=== PATIENT | male | born 1930 | race Caucasian/White ===

== ENCOUNTER 2019-02-06 10:09 | Inpatient (IN) | payer OTHER ==
[~2019-02-06] VITALS: Ht 182.8 cm; Wt 83.9 kg
[2019-02-06] MEDS ORDERED: ARICEPT10 M1 PO (10:12)
[2019-02-06] MEDS ORDERED: ASPIRIN81 M1 PO (10:13)
[2019-02-06] MEDS ORDERED: ATORVASTATIN CA10 M1 PO (10:14)
[2019-02-06] MEDS ORDERED: IMDUR SA30 MG PO (10:16)
[2019-02-06] MEDS ORDERED: LISINOPRIL5 MG PO (10:16)
[2019-02-06] MEDS ORDERED: NAMENDA-5 PO (10:17)
[2019-02-06] MEDS ORDERED: LORADAMED10 MG PO (10:17)
[2019-02-06] MEDS ORDERED: DEPAKOTE SPRIN125 MG PO (10:18)
[2019-02-06] MEDS ORDERED: REMERON15 M2 PO (10:19)
[2019-02-06] MEDS ORDERED: RISPERIDONE1 MG PO (10:20)
[2019-02-06] MEDS ORDERED: VISTARIL50 MG PO (10:20)
[2019-02-06] MEDS ORDERED: LOPRESSOR25 MG PO (10:21)
[2019-02-06] MEDS ORDERED: BRILINTA90 M1 PO (10:23)
[2019-02-06 14:32] VITALS: BP 115/87
[2019-02-06 14:33] VITALS: BP 115/87
--- NOTE | 2019-02-06 14:40 | NUR ---
ALANNA FERNANDO a 88 year old M admitted via wheel chair from the [facility] as a voluntary BY POA admission. Arrived on unit at 1425 . ALLERGIES: PCN, XYLOCAINE . Vital signs are: 98.0-69-20 115/87. VERBAL CONSENT RECEIVED FROM THE POA FOR the following forms with stated understanding: Authorization For The Release of Medical Information, Clothing List, Consent to Voluntary Admission and Hospitalization, Consent and Release Forms/Receipt of Rights, Acknowledgement of Advance Directive Information, Behavioral Health Consent Form, and Informed Consent of Medications. Admitted under the services of Dr. JOANN ALLAN,[facility]. A search was conducted and hazardous articles were removed. Client was oriented to the unit. BEVERLY CONLEY
--- NOTE | 2019-02-06 14:43 | NUR ---
ATTEMPTED TO NOTIFY MEDICAL DR OF MEDICAL MANAGEMENT CONSULT NEEDED, NO ANSWER AT THIS TIME WILL CALL AGAIN.
--- NOTE | 2019-02-06 14:54 | NUR ---
SPOKE WITH DR. ZUNIGA AT [phone] RE: MEDICAL MANAGEMENT CONSULT NEEDED PER DR. DONOVAN CONSULT UNDER DR SANCHEZ
--- NOTE | 2019-02-06 14:59 | NUR ---
DR. SANCHEZ ON UNIT TO ASSESS PT.
--- NOTE | 2019-02-06 17:28 | NUR ---
SHIFT CHART CHECK COMPLETED.
[2019-02-06 19:47] VITALS: BP 129/60
--- NOTE | 2019-02-06 20:02 | NUR ---
PT ALERT, ORIENTED TO PERSON ONLY. IRRITABLE. ST/LT DEFICITS APPARENT. PT REORIENTED, REDIRECTED, PROVIDED WITH LOW STIMULATION AND CALM 1:1. PT UNABLE TO BE REORIENTED. RECEPTIVE TO REDIRECTION. CALMS WITH 1:1. WILL CONTINUE TO ATTEMPT REORIENTATION. WILL REDIRECT AND PROVIDE 1:1 APPROPRIATE. WILL PROVIDE MEDICATIONS PER ORDER. Q15 MIN MONITORING PER POLICY
[2019-02-06 23:21] LABS: BILIRUBIN NEGATIVE (NEGATIVE); BLOOD NEGATIVE (NEGATIVE); CLARITY CLEAR (CLEAR); COLOR YELLOW (YELLOW); GLUCOSE NEGATIVE (NEGATIVE); KETONE NEGATIVE (NEGATIVE); LEUKO ESTERASE NEGATIVE (NEGATIVE); NITRITE NEGATIVE (NEGATIVE); PH 6.5 (5.0-9.0)
[2019-02-06 23:32] LABS: WBC 0-2 wbc/hpf (0-5)
--- NOTE | 2019-02-07 00:59 | NUR ---
The patient has no complaints and is resting comfortably. RUSSELL MARTINEZ
--- NOTE | 2019-02-07 04:24 | NUR ---
PT AWAKE AND IRRITABLE. CONFUSED. YELLING OUT. VERBALLY AGGRESSIVE. PT IS YELLING OUT FOR "ZE" AND "SERG". STATING "FIRST THING I AM FILING FOR IS A DIVORCE. I'M GOING TO MISS A WHOLE DAY'S WORTH OF WORK BECAUSE I AM STUCK HERE". PT ALSO STATES "I HOPE YOU GET YOUR HEAD SMASHED IN SOMETHING FIERCE". PT UNRECEPTIVE TO REDIRECTION, CONTINUES TO YELL OUT AT THIS TIME. PT LEFT IN LOW STIMULATION AREA TO CALM. ENCOURAGED TO REST.
--- NOTE | 2019-02-07 05:05 | NUR ---
pts aggression increasing, states "if i could reach you i would bust you in the mouth". continuing to yell out at staff and peers. redirection, low stimulation, and snack ineffective. ativan 1mg po given per prn order for unredirectable agitation.
--- NOTE | 2019-02-07 05:48 | NUR ---
PT SLEPT BROKEN 4 HOURS, UP AT 0330.
[2019-02-07 07:01] LABS: BASO % 0.3 % (0.0-1.0); EOS # 0.2 10*3/uL (0.0-0.4); EOS % 5.4 % (1.0-4.0); HEMATOCRIT 36.5 % (42.0-52.0); HEMOGLOBIN 11.3 g/dl (14.0-18.0); LYMPH % 26.6 % (27.0-41.0); MEAN CELL VOLUME 90.3 fl (80.0-94.0); MEAN PLATELET VOLUME 11.8 fl (9.6-12.3); MONO # 0.4 10*3/uL (0.1-1.0); MONO % 10.6 % (3.0-9.0); NEUT # 2.1 10*3/uL (2.3-7.9); NEUT % 56.8 % (47.0-73.0); PLATELET COUNT AUTOMATED 99 10*3/uL (130-400); RED BLOOD COUNT 4.04 10*6/uL (4.50-5.90); RED CELL DISTRI WIDTH 16.4 % (0-14.5); WHITE BLOOD COUNT 3.7 10*3/uL (4.8-10.8)
[2019-02-07 07:24] LABS: ALBUMIN 3.2 gm/dl (3.1-4.5); BUN 16 mg/dl (7-24); CHLORIDE 110 mmol/L (98-107); CHOLESTEROL 124 mg/dL (<200); CREATININE 1.05 mg/dL (0.70-1.30); POTASSIUM 3.9 mmol/L (3.5-5.1); SGOT/AST 28 IU/L (3-35); SGPT/ALT 26 U/L (12-78); SODIUM 143 mmol/L (136-145); TRIGLYCERIDES 63 mg/dl (<150); VLDL CHOLESTEROL 13 mg/dL (6-40)
[2019-02-07 07:32] VITALS: BP 120/63
[2019-02-07 07:34] LABS: ALKALINE PHOSPHATASE 78 U/L (45-117); HDL CHOLESTEROL 44 mg/dl (40-60); LDL CHOLESTEROL 67 mg/dL (9-159); TOTAL PROTEIN 6.4 gm/dL (6.4-8.2)
[2019-02-07 08:14] LABS: VITAMIN D, 25-HYDROXY 22.8 ng/mL (30-100)
--- NOTE | 2019-02-07 08:24 | NUR ---
PHYSICAL THERAPY Screen received as well as orders for PT will follow, thank you Shyanne Serna PT
--- NOTE | 2019-02-07 09:26 | NUR ---
P-CONFUSION I-REDIRECTION WITH 1:1 THERAPEUTIC INTERVENTIONS AND PRESENT REALITY. EDUCATE AND ENCOURAGE MEDICATION COMPLIANCE R-PATIENT MEDICATION COMPLIANT. PATIENT ABLE TO MAKE NEEDS KNOWN AT TIMES DURING THE SHIFT. PATIENT WITH INAPPROPRIATE CONVERSATION WHEN INTERACING WITH NURSING STAFF AT TIMES. PATIENT PROVIDED NOURISHMENT AND FLUIDS. P-CONTINUE TO ENCOURAGE MEDICATION COMPLIANCE, CONTINUE TO PRESENT REALITY, ENCOURAGE GROUP THERAPY WHILE AWAKE
--- NOTE | 2019-02-07 09:56 | NUR ---
DR SANCHEZ ON UNIT TO SEE PATIENT
--- NOTE | 2019-02-07 10:16 | NUR ---
Treatment team meeting with Dr Bryan, RN, and PARAMJIT Pt is new from [facility] with plan to return there late next week.
--- NOTE | 2019-02-07 10:20 | NUR ---
REACHED OUT TO [facility] IN RE: TO HAVING RECENT LABS FAXED OVER. PER ROSIE SHE WILL FAC THEM SHORTLY.
--- NOTE | 2019-02-07 11:20 | NUR ---
DR BALDWIN UPDATED AND AWARE THAT LAB RESULTS NEED REVIEWED FOR PANCYTOPENIA PER DR DAVID REQUEST
--- NOTE | 2019-02-07 11:28 | NUR ---
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
--- NOTE | 2019-02-07 11:45 | NUR ---
AM GROUP PT WAS PRESENT FOR MORNING GROUP THERAPY SITTING RECLINED IN A ANDREA CHAIR WITH THE TRAY ON. PT WAS BECOMING AGITATED AT THE TRAY AND WAS DISTRACTABLE FOR A SHORT TIME. PT BEGAN TRYING TO SLIDE UNDER THE TRAY AND HELP WAS CALLED FOR. PT WAS TOILETED AND NOT RETURNED TO THE DAYROOM.
--- NOTE | 2019-02-07 11:55 | NUR ---
PATIENT AMBULATING ON UNIT WITH ASSIST X 2. PATIENT WITH ATTEMPTS TO PUT SELF ON FLOOR AND ASSISTED TO SIT DOWN. PATIENT ATTEMPTING TO STRIKE OUT AT NURSING STAFF. PATIENT RECEIVED ATIVAN 1MG IM IN LEFT DELTOID. MEDICATION WITH EFFECTIVE RESULTS AT THIS TIME
--- NOTE | 2019-02-07 12:05 | NUR ---
Left a voicemail message for pt's son Burton requesting a return call to obtain additional patient information and to offer a family meeting. Await return call.
--- NOTE | 2019-02-07 13:40 | NUR ---
ROSEANN MELCHOR FROM [facility] IP IS APPROVED FOR 3 DAYS, FROM 02/06-02/08. REF NUMBER [id number]
--- NOTE | 2019-02-07 15:14 | NUR ---
Occupational therapy orders received and nursing screen received. Will follow up with patient. Thank you. Denice Cai, OTR/L
--- NOTE | 2019-02-07 15:54 | NUR ---
PM GROUP/WATERCOLORS PT DID NOT ATTEND AFTERNOON GROUP THERAPY. PT WAS IN BED RESTING.
--- NOTE | 2019-02-07 17:13 | NUR ---
Shift chart check completed.
[2019-02-07 19:38] VITALS: BP 104/66
--- NOTE | 2019-02-07 21:44 | NUR ---
PT CONFUSED. ST/LT DEFICITS APPARENT. PT LOOKING FOR FAMILY MEMBERS, TOOLS, MAINTENANCE. PT REORIENTED, REDIRECTED, PROVIDED WITH LOW STIMULATION AND CALM 1:1. PT UNABLE TO BE REORIENTED D/T POOR COGNITION. RECEPTIVE TO REDIRECTION. CALMS WITH MUCH 1:1 AND LOW STIMULATION. WILL CONTINUE TO ATTEMPT REORIENTATION. WILL REDIRECT AND PROVIDE 1:1 APPROPRIATE. WILL PROVIDE MEDICATIONS PER ORDER. Q15 MIN MONITORING PER POLICY
--- NOTE | 2019-02-08 04:12 | NUR ---
The patient has no complaints and is resting comfortably. RUSSELL MARTINEZ
--- NOTE | 2019-02-08 08:15 | NUR ---
Treatment Plan meeting was held this morning with Dr. Bryan, RN, AT, VEGETABLE PACKER-S and Security Incident Response Specialist. Plan for discharge next week. Pt. will return to [facility].
[2019-02-08 08:39] VITALS: BP 130/68
--- NOTE | 2019-02-08 10:00 | NUR ---
CALL PLACED TO [facility] TO RETRIEVE RECORDS FROM HEMATOLOGY. [facility] STATE THEY DO NOT HAVE THESE RECORDS AND REFERRED STAFF TO CHECK WITH PT'S PREVIOUS LONGTERM, WOODS MANAGER LEFT MESSAGE FOR D.O.N. AT THIS FACILITY IN ATTEMPT TO RETRIEVE HEMATOLOGY RECORDS.
--- NOTE | 2019-02-08 10:30 | NUR ---
Occupational therapy orders received and OT evaluation completed in full on floor three. Patient precautions include fall risk, bed/chair alarm, supervision, decreased command follow, confusion, and lethargy. Per OT eval, OT recommends a SNF. Patient would benefit from continued OT treatment to maximize safety and independence with ADLs, mobility, and transfers. Thank you. Denice Cai, OTR/L
--- NOTE | 2019-02-08 10:45 | NUR ---
PHYSICAL THERAPY Be completed moderate level of complexity 20715 full report to follow recomend f/u therapy at facility upon return pending progress. PT to work on tranfers,amb/strengthening, balance/safety. Shyanne Serna PT
--- NOTE | 2019-02-08 11:43 | NUR ---
AM GROUP PT DID NOT ATTEND MORNING GROUP THERAPY. PT WAS IN BED RESTING.
--- NOTE | 2019-02-08 15:36 | NUR ---
PM GROUP PT WAS PRESENT FOR AFTERNOON GROUP THERAPY SLEEPING RECLINED IN A ANDREA CHAIR. PT DID NOT WAKE DURING GROUP BUT WAS NOTED TO BE SNORING LOUDLY.
--- NOTE | 2019-02-08 16:18 | NUR ---
AFTER CONTINUED REVIEW WITH SUSANA CURRIE APPROVED FOR 3 ADDITIONAL DAYS. NEXT REVIEW DATE 02/12
--- NOTE | 2019-02-08 18:40 | NUR ---
NO ADVERSE MOODS OR BEHAVIORS THIS SHIFT. PT NAPPING INTERMITTENTLY T/O SHIFT. EASILY AROUSABLE VIA VERBAL/TACTILE STIMULI. PT IS ALERT AND ORIENTED TO SELF ONLY. CONFUSED IN ALL OTHER AREAS. ST/LT MEMORY GAPS NOTED. MOOD APPEARS STABLE WITH FLAT AFFECT. SPEECH IS SOFT, COHERENT, ABLE TO ANSWER SIMPLE QUESTIONS AND MAKE NEEDS KNOWN. PT DENIES SI/HI, INTENT OR PLAN. PT DENIES HALLUCINATIONS, NO RESPONSE TO INTERNAL STIMULI NOTED. NO PARANOIA OR DELUSIONS NOTED. MED COMPLIANT THIS DATE WITHOUT DIFFICULTY. NO AGGRESSIVE BEHAVIORS DISPLAYED THIS SHIFT. PLAN TO CONTINUE CURRENT TREATMENT, CONTINUE TO MONITOR MOOD AND BEHAVIORS, PROVIDE APPROPRIATE REORIENTATION, REDIRECTION AND 1:1 NEEDED. CONTINUE TO ENCOURAGE MEDICATION COMPLIANCE WELL GROUP ATTENDANCE AND PARTICIPATION.
[2019-02-08 19:46] VITALS: BP 126/72
--- NOTE | 2019-02-08 22:28 | NUR ---
P-CONFUSION I-REDIRECTION WITH 1:1 THERAPEUTIC INTERVENTIONS AND PRESENT REALITY. EDUCATE AND ENCOURAGE MEDICATION COMPLIANCE R-PATIENT MEDICATION COMPLIANT. PATIENT ABLE TO MAKE NEEDS KNOWN AT TIMES DURING THE SHIFT. PATIENT WITH INAPPROPRIATE CONVERSATION WHEN INTERACTING WITH NURSING STAFF AT TIMES. PATIENT PROVIDED NOURISHMENT AND FLUIDS. P-CONTINUE TO ENCOURAGE MEDICATION COMPLIANCE, CONTINUE TO PRESENT REALITY, ENCOURAGE GROUP THERAPY WHILE AWAKE
--- NOTE | 2019-02-09 05:49 | NUR ---
PATIENT SLEPT 5 HOURS INTERRUPTED SLEEP THROUGHOUT SHIFT. Q 15 MINUTE CHECKS MAINTAINED. 24 HR chart check completed.
[2019-02-09 06:27] LABS: BASO % 0.2 % (0.0-1.0); EOS # 0.2 10*3/uL (0.0-0.4); EOS % 4.6 % (1.0-4.0); HEMATOCRIT 35.3 % (42.0-52.0); HEMOGLOBIN 11.1 g/dl (14.0-18.0); LYMPH # 1.2 10*3/uL (1.3-4.4); LYMPH % 27.1 % (27.0-41.0); MEAN CELL VOLUME 91.2 fl (80.0-94.0); MEAN CORPUSCULAR HGB 28.7 pg (27.0-31.0); MEAN CORPUSCULAR HGB CONC 31.4 g/dl (33.0-37.0); MEAN PLATELET VOLUME 11.7 fl (9.6-12.3); MONO # 0.5 10*3/uL (0.1-1.0); MONO % 10.7 % (3.0-9.0); NEUT # 2.5 10*3/uL (2.3-7.9); NEUT % 57.2 % (47.0-73.0); PLATELET COUNT AUTOMATED 89 10*3/uL (130-400); RED BLOOD COUNT 3.87 10*6/uL (4.50-5.90); RED CELL DISTRI WIDTH 16.4 % (0-14.5); WHITE BLOOD COUNT 4.3 10*3/uL (4.8-10.8)
[2019-02-09 07:54] VITALS: BP 132/70
--- NOTE | 2019-02-09 10:00 | NUR ---
DR. SANCHEZ ON UNIT TO ASSESS PATIENT.
--- NOTE | 2019-02-09 12:02 | NUR ---
AM GROUP/EXERCISE/MUSIC/BINGO PT IN ATTENDANCE BUT DUE TO LEVELS OF COGNTION PT UNABLE TO FOCUS ON ACTIVITY AT THIS TIME. PT DID NOT BECOME ASSAULTIVE OR AGGRESSIVE AT THIS TIME. PT WILL OCNITNUE TO ATTEND GROUP AND PARTICIPATE TO BEST OF PT ABILITY.
--- NOTE | 2019-02-09 13:33 | NUR ---
P: INCREASED CONFUSION, ARGUEMENTATIVE, IRRITABLE, INCREASED ANXIETY, RAISING VOICE AT STAFF AND BECOMING VERBALLY AGGRESSIVE TOWARDS NURSE. PATIENT INFORMED NURSE THAT THE CAMERAS IN THE DINING ROOM ARE "SHOWERS; HE IS A BAR/RESTAURANT BUILDING." I: ONE ON ONE FOR EMOTIONAL SUPPORT, CHANGE OF ENVIRONMENT WITH LOW STIMULI, OFFERED FOOD AND DRINK, ASSISTED TO BATHROOM FOR TOILETING NEEDS. REDIRECTION AND ORIENTATION PROVIDED. R: INEFFECTIVE. PRN ATIVAN 1MG PO GIVEN. CONTINUE TO PROVIDE ONE ON ONE, REDIRECTION/ORIENTATION WHILE SITTING WITH NURSE IN HALLWAY. PATIENT IS ALERT TO PERSON WITH CONFUSION. PATIENT BELIEVES [facility], REBECCA IS PRESIDENT AND THE DATE IS APR 15, 1960. LONG/SHORT TERM MEMORY DEFICITS NOTED. MOOD IS ANGRY/IRRITABLE, HOPELESS AND HELPLESS. RESPONDING TO INTERNAL STIMULI OBSERVED WITH VISUAL HALLUCINATIONS. NO VOICED STATEMENT OF HI/SI OR PAIN. 1-2 PERSON ASSIST WITH ACTIVITIES OF DAILY LIVING, INCONTINENT OF BLADDER, CONTINENT OF BOWEL. SET UP FOR MEALS, INTAKES ARE GOOD WITH ADQUATE FLUIDS. ASSISTANCE PROVIDED WITH AMBULATION DUE TO UNSTEADY GAIT. MEDICATION COMPIANT. Q 15 MINUTE SAFETY CHECKS MAINTAINED. P: CONTINUE TO MONITOR FOR AGGRESSION, PROVIDE ONE ON ONE, REDIRECTION/ORIENTATION NEEDED.
[2019-02-09 19:49] VITALS: BP 139/80
--- NOTE | 2019-02-09 21:32 | NUR ---
PT CONFUSED. ST/LT DEFICITS APPARENT. PT ASKING FOR "HEFTY GIRLS" TO HELP GET HIM OUT OF THIS PLACE. PT STATING "AT LEAST I DIDN'T CALL YOU CONRADO TORRES". PT IS LAUGHING, JOKING WITH STAFF, SINGING SONGS. PT REORIENTED AND REDIRECTED. PT UNABLE TO BE REORIENTED D/T POOR COGNITION. RECEPTIVE TO REDIRECTION, AND APPEARS TO ENJOY 1:1 INTERACTIONS. WILL CONTINUE TO ATTEMPT REORIENTATION. WILL REDIRECT AND PROVIDE 1:1 APPROPRIATE. WILL PROVIDE MEDICATIONS PER ORDER. Q15 MIN MONITORING PER POLICY
--- NOTE | 2019-02-10 06:32 | NUR ---
PT SLEPT 7 HOURS LAST HS.
[2019-02-10 07:26] VITALS: BP 135/85
--- NOTE | 2019-02-10 11:57 | NUR ---
AM GROUP/EXERCISE/MUSIC/GAMES PT IN ATTENDANCE BUT RESTING AT THIS TIME. PT WILL CONTINUE TO ATTEND FUTURE GROUP SESSIONS AND BE ENCOURAGED TO PARTICIPATE TO BEST OF PT ABILITY.
--- NOTE | 2019-02-10 14:27 | NUR ---
PATIENT IS ALERT TO PERSON WITH CONFUSION. LONG/SHORT TERM MEMORY DEFICITS. NO RESPONSE TO INTERNAL STIMULI OBSERVED. NO VOICED STATEMENT OF HI/SI OR PAIN. PATIENT SLEEPING ON AND OFF THROUGHOUT THE DAY. NO AGGRESSION NOTED. MEDICATION COMPLAINT. Q 15 MINUTE STAFETY CHECKS MAINTAINED. 1-2 PERSON ASSIST WITH ACTIVITIES OF DAILY LIVING, INCONTINENT OF BLADDER, CONTINENT OF BOWEL. AMBULATES WITH ASSIST. SET UP FOR MEALS, INTAKES ARE GOOD WITH ADEQUATE FLUIDS. UP IN ANDREA CHAIR FOR COMFORT. IN DINING ROOM DURING MORNING ACTIVITIES BUT DID NOT PARTICIPATE IN GROUP SESSION. CONTINUE TO MONITOR FOR AGGRESSSION, PROVIDE ONE ON ONE AND REDIRECTION NEEDED.
--- NOTE | 2019-02-10 15:39 | NUR ---
Shift chart check completed.
[2019-02-10 19:56] VITALS: BP 132/52
--- NOTE | 2019-02-10 21:35 | NUR ---
PT CONFUSED. ST/LT DEFICITS APPARENT. PT REORIENTED AND REDIRECTED. PT UNABLE TO BE REORIENTED D/T POOR COGNITION. RECEPTIVE TO REDIRECTION, AND APPEARS TO ENJOY 1:1 INTERACTIONS. PT IS CALM, COOPERATIVE WITH CARE. WILL CONTINUE TO ATTEMPT REORIENTATION. WILL REDIRECT AND PROVIDE 1:1 APPROPRIATE. WILL PROVIDE MEDICATIONS PER ORDER. Q15 MIN MONITORING PER POLICY
--- NOTE | 2019-02-11 05:48 | NUR ---
PT SLEPT 9 HOURS
--- NOTE | 2019-02-11 07:25 | NUR ---
PHYSICAL THERAPY Patient was in supine in bed this am when approached for therapy and was unable to arouse with both verbal / tactile stimuli. OT inventory control assistant was present this morning as patient remained in bed sleeping with bed alarm activated and bed side rails raised for safety. Will continue per POC as able. Waqar Sullivan, FIELD SALES SPECIALIST
[2019-02-11 07:42] VITALS: BP 138/70
--- NOTE | 2019-02-11 07:49 | NUR ---
Approached pt this am for OT but patient difficult to arouse despite verbal & tactile cues. U staff said "Lex has not been feeling well during evening and did not sleep well". Will attempt OT another time or date. Continue with OT POC. Jannet BRUNO/Davion
--- NOTE | 2019-02-11 08:15 | NUR ---
Treatment Plan meeting was held with BILL Srivastava RN, AT, RAIMUNDO-S and Rare/Endangered Species Specialist in attendance. Plan for discharge at the end of the week or beginning of next week. Pt. to return to [facility].
--- NOTE | 2019-02-11 09:46 | NUR ---
DR. SANCHEZ ON UNIT TO ASSESS PATIENT.
--- NOTE | 2019-02-11 11:20 | NUR ---
Spoke with Sandra at [facility]. Advised of plans to discharge at the end of the week. Clinical Updates faxed to Facility [phone].
--- NOTE | 2019-02-11 11:36 | NUR ---
AM GROUP/EXERCISE PT WAS PRESENT FOR MORNING GROUP THERAPY RECLINED IN A ANDREA CHAIR SLEEPING. PT DID NOT WAKE DURING GROUP.
--- NOTE | 2019-02-11 13:40 | NUR ---
P: SEXUALLY INAPPROPRIATE DURING HANDS ON CARE, ATTEMPTING TO GRAB FEMALE MENTAL HEALTH WORKER'S BREAST/HIP AREA. WITHDRAWN TO SELF, NOT INTERACTING IN WITH STAFF OR WITH OTHER PATIENTS IN GROUP SESSION. I: ONE ON ONE, REDIRECTION AND MALE MENTAL HEALTH WORKER ASSISTED WITH MORNING CARE, ENCOURAGE PATIENT TO ATTEND GROUP SESSION AND SOCIALZE WITH OTHER PATIENTS. R: EFFECTIVE. PATIENT IS ALERT TO SELF WITH CONFUSION. LONG/SHORT TERM MEMORY DEFICTS. MOOD IS STABLE; HOPELESS/HELPLESS. NO RESPONSE TO INTERNAL STIMULI, NO VOICED STATEMENTS OF HI/SI OR PAIN. MEDICATION COMPLAINT. Q 15 MINUTE SAFETY CHECKS MAINTAINED. 2 PERSON ASSIST WITH ACTIVITIES OF DAILY LIVING, INCONTINENT OF BADDER, CONTINENT OF BOWEL. AMBULATORY WITH ASSIST DUE TO UNSTEADY GAITN AND POOR SAFETY AWARENESS. NO AGGRESSION OR EXIT SEEKING OBSERVED. P: CONTINUE TO MONITOR FOR AGGRESSION, EXIT SEEKING/WONDERING ON UNIT. PROVIDE ONE ON ONE, REDIRETION/ORIENTATION NEEDED.
--- NOTE | 2019-02-11 15:31 | NUR ---
Shift chart check completed.
--- NOTE | 2019-02-11 15:35 | NUR ---
PM GROUP/MOVIE AND MANICURES PT WAS PRESENT FOR AFTERNOON GROUP THERAPY RECLINED IN A ANDREA CHAIR WATCHING THE MOVIE. PT WAS QUIET AND CONTENT. PT EXHBITED NO AGITATION OR AGGRESSION WHILE IN GROUP
[2019-02-11 19:46] VITALS: BP 135/72
--- NOTE | 2019-02-11 21:24 | NUR ---
P-CONFUSION I-REDIRECTION WITH 1:1 THERAPEUTIC INTERVENTIONS AND PRESENT REALITY. EDUCATE AND ENCOURAGE MEDICATION COMPLIANCE R-PATIENT MEDICATION COMPLIANT. PATIENT ABLE TO MAKE NEEDS KNOWN AT TIMES DURING THE SHIFT. PATIENT NONSENSICAL AT TIMES WITH CONVERSATION WHEN INTERACTING. DIVERSIONAL ACTIVITIES PROVIDED FOR PATIENT TO HELP DECREASE STIMULI.PATIENT PROVIDED NOURISHMENT AND FLUIDS. P-CONTINUE TO ENCOURAGE MEDICATION COMPLIANCE, CONTINUE TO PRESENT REALITY, ENCOURAGE GROUP THERAPY WHILE AWAKE
--- NOTE | 2019-02-12 05:46 | NUR ---
PATIENT SLEPT 7 HOURS OF INTERRRUPTED SLEEP THROUGHOUT THE SHIFT. Q 15 MINUTE CHECKS MAINTAINED. 24 HR chart check completed.
--- NOTE | 2019-02-12 07:30 | NUR ---
PHYSICAL THERAPY Patient seen this am for therapy visit and was sitting up in activity room Estelita chair upon therapist arrival. Patient identified by name / and needed a few minutes of conversation to fully awaken. Patient performed several sit to stand transfers at rail in hallway, MIN A, tolerating 90 seconds static stand first attempt with NBOS. Patient able to follow simple commands and needed v/c to focus on task. Patient also ambulated DISPLAY CARVER/MIN, including single handrail support, 10'x 1, demonstrating slow, unsteady ladan wiht decreased stride. Patient returned to Estelita chair with lap tray / body alarm and remained in activity room awaiting breakfast under [facility] staff Supervision. OT paraprofessional education assistant was present for observation only during MACHINE ASSISTANT visit this morning. Will continue per POC as tolerated, total treatment time 14 minutes. Waqar Sullivan, MACHINE ASSISTANT
[2019-02-12 07:41] VITALS: BP 110/61
--- NOTE | 2019-02-12 08:15 | NUR ---
Treatment Plan meeting was held with Carola KHAN, RN, AT, TECHNICAL PROJECT LEAD-S and Time Clock Inspector, Plan for discharge at the end of the week. Pt. will return to [facility] at discharge.
--- NOTE | 2019-02-12 08:15 | NUR ---
Treatment Plan meeting was held with Dr. Bryan, RN, AT, ENAMEL PULVERIZER-S and Garment Mender in attendance. Plan for discharge at the end of the week. Pt. will return to [facility].
--- NOTE | 2019-02-12 09:00 | NUR ---
PER INSURANCE CASE NEEDS A PEER REVIEW. PROVIDED WITH DR JOANN NYE.
--- NOTE | 2019-02-12 09:47 | NUR ---
PT C/O DIZZINESS AND HEADACHE. PT PROVIDED WITH 240CC OF WATER, MANUAL BP 100/50. RADIAL HR 82. PT RECLINED IN ANDREA CHAIR, FEET ELEVATED. PT GIVEN TYLENOL 650MG PO PER PRN ORDER FOR DISCOMFORT.
--- NOTE | 2019-02-12 11:36 | NUR ---
AM GROUP/WATERCOLORS PT WAS PRESENT FOR MORNING GROUP THERAPY BUT IS UNABLE TO PARTICIPATE DUE TO COGNITIVE IMPAIRMENT. PT KEPT TRYING TO GET UP AND "GO TAKE CARE OF THAT BILL" PT WAS REDIRECTABLE FOR SHORT PERIODS.
--- NOTE | 2019-02-12 13:37 | NUR ---
PHYSICAL THERAPY CO-SIGN I approve of the Physical Therapy notes written above Shyanne Serna PT
--- NOTE | 2019-02-12 15:32 | NUR ---
OCCUPATIONAL THERAPY CO-SIGN I approve of the Occupational Therapy notes written above. MIKO JEAN OTR/Davion
--- NOTE | 2019-02-12 16:35 | NUR ---
PT CONFUSED. ST/LT DEFICITS APPARENT. PT REORIENTED, PROVIDED WITH LOW STIMULATION AND CALM 1:1. PT UNABLE TO BE REORIENTED D/T POOR COGNITION. CALMS WITH MUCH 1:1 AND LOW STIMULATION. WILL CONTINUE TO ATTEMPT REORIENTATION. WILL PROVIDE 1:1 APPROPRIATE. WILL PROVIDE MEDICATIONS PER ORDER. Q15 MIN MONITORING PER POLICY
[2019-02-12 20:00] VITALS: BP 120/65
--- NOTE | 2019-02-12 22:19 | NUR ---
PLEASENTLY CONFUSED. CRACKING JOKES WITH STAFF, LAUGHING, TRYING TO PROVIDE EMOTIONAL SUPPORT AND DIRECTION TO FEMALE PEER. ORIENTED TO SELF ONLY. MEDICATION COMPLIANT. NO OUTBURST NOTED THIS SHIFT
--- NOTE | 2019-02-13 02:23 | NUR ---
24 HR chart check completed.
--- NOTE | 2019-02-13 06:06 | NUR ---
SLEPT WELL FROM 2215PM TO 0620AM. MOVED SELF AROUND IN BED. MONITORED Q 15 MINUTES AND PRN FOR SAFETY
--- NOTE | 2019-02-13 06:50 | NUR ---
INCONTNENT OF LARGE AMOUNT OF URINE. CLEANED UP AND DRESSED AND TAKEN TO DININGROOM
[2019-02-13 07:32] VITALS: BP 112/61
--- NOTE | 2019-02-13 08:41 | NUR ---
DR. SANCHEZ ON UNIT TO ASSESS PT, UPDATE PROVIDED.
--- NOTE | 2019-02-13 10:54 | NUR ---
PATIENT COMPLAINING OF HAVING INDIGESTION REQUESTING SOMETHING. PRN MAALOX 30ML PO GIVEN.
--- NOTE | 2019-02-13 14:18 | NUR ---
NO FURTHER COMPLAINTS OF INDIGESTION; PRN MAALOX EFFECTIVE.
[2019-02-13 19:24] VITALS: BP 108/64
--- NOTE | 2019-02-13 20:22 | NUR ---
P--CONFUSED, ANXIOUS, ARGUMENTATIVE I--REDIRECTION, EMOTIONAL SUPPORT, CHANGE OF SUBJECT. MEDICATED PER ORDERS. R--CLIENT ARGUING WITH MALE PEER THAT HE OWES HIM 20$. REFUSED REDIRECTION . MEDICATION COMPLIANT P--MONITOR FOR CHANGES IN MOOD/BEHAVIOR.
--- NOTE | 2019-02-14 02:25 | NUR ---
24 HR chart check completed.
--- NOTE | 2019-02-14 06:02 | NUR ---
SLEPT WELL PAST 2300PM. MOVED SELF IN BED, NO ASSISTANCE NEEDED
--- NOTE | 2019-02-14 07:20 | NUR ---
PHYSICAL THERAPY Patient seen this am for therapy visit and was supine in bed upon therapist arrival. Patient identified by name / and presented with increased lethargic behaviour. OT assistant hall director was present for observation only during COMMERCIAL REAL ESTATE APPRAISER visit as patient required multiple v/c's to focus on task in completing all treatment this session. Patient transfers supine to sit EOB with MOD A, tolerating several minutes static sit to fully awaken. Patient demonstrated several bouts of retrograde seated posture and needed therapist assist to prevent falling back into bed. Patient performed several sit to stand transfers, MIN A x 2, then completed SPT to Berna chair. Patient too lethargic / unsteady on his feet to attmept gait this morning. Patient remained in Berna chair with lap tray and body alarm while transported to activity room. Patient remained at table awaiting breakfast under [email or web address] staff Supervision. Will continue per POC as tolerated, total treatment time 13 minutes. Waqar Sullivan, COMMERCIAL REAL ESTATE APPRAISER
[2019-02-14 07:25] VITALS: BP 111/69
--- NOTE | 2019-02-14 07:40 | NUR ---
OT NOTE Pt was seen this A.M. 1:1 for 20 minute OT session with REPAIR SERVICER and nursing staff present for observation only. Upon arrival pt was supine in bed. Pt identified by name and on wristband due to lethargic behaviors, being non verbal throughout, and not opening his eyes. Pt donned pants with maxA for assist with donning over his feet and pulling up to waist level. Pt transferred supine to sit EOB with maxA X 2. While sitting EOB challenged pt's static sitting balance needed for enhanced safety and increased I, pt was able to maintain F- sitting balance requiring Sonny to correct retrograde posture. Sit to stand completed from bed level with Sonny X 2 ACCOUNT INFORMATION CLERK. Challenged pt's static standing tolerance needed for increased I in functional transfers, pt was able to tolerate aprox 15 seconds before sitting due to fatigue. Stand pivot completed from EOB to the andreina chair with Sonny X 2. Pt was left sitting upright in the dining velasquez in his andreina chair with lap tray in place, body alarm activated for safety, and under U staff supervision. Continue with POC as indicated. ETHAN Alarcon/Davion
--- NOTE | 2019-02-14 08:15 | NUR ---
Treatment plan meeting was held with BILL Srivastava, RN, AT, RAIMUNDO-S and Finisher Plate in attendance. Plan for discharge Monday with return to [facility].
--- NOTE | 2019-02-14 08:33 | NUR ---
Patient resting quietly with no c/o discomfort. Respirations easy and regular. Vital signs stable. No overt distress. RUSSELL MARTINEZ
--- NOTE | 2019-02-14 10:38 | NUR ---
Spoke with Sandra at [facility]. Notified of plans to discharge tommorow. Pt. will return to facility. Provided with updates and faxed clinical Updates to facility.
--- NOTE | 2019-02-14 10:48 | NUR ---
Spoke with Pt. Son Burton who is DPOH to notify of plans to discharge tommorow. Son Receptive and voiced no questions or concerns.
--- NOTE | 2019-02-14 11:36 | NUR ---
AM GROUP PT WAS PRESENT FOR MORNING GROUP THERAPY RECLINED IN A ANDRAE CHAIR SLEEPING. PT WOULD OCCASIONALLY MOVE AND TALK IN HIS SLEEP BUT OTHERWISE DID NOT WAKE DURING GROUP.
--- NOTE | 2019-02-14 12:42 | NUR ---
PT CONFUSED. QUIET AND RESTING FOR MOST OF AM. PT REORIENTED, RECLINED IN ANDREA CHAIR TO PROMOTE REST. PT UNABLE TO BE REORIENTED D/T POOR COGNITION. PT HAS BEEN CALM AND COOPERATIVE WITH CARE. WILL CONTINUE TO ATTEMPT REORIENTATION. WILL PROVIDE MEDICATIONS PER ORDER. Q15 MIN MONITORING PER POLICY
--- NOTE | 2019-02-14 15:04 | NUR ---
Transportation arranged for discharge with [facility] to transport with picker feeder time 10:30.
--- NOTE | 2019-02-14 15:36 | NUR ---
PM GROUP/PAINTING PT WAS PRESENT FOR AFTERNOON GROUP THERAPY RECLINED IN A ANDREA CHAIR SLEEPING. PT DID NOT WAKE DURING GROUP
--- NOTE | 2019-02-14 18:56 | NUR ---
PT C/O CHEST PAIN. VS [id number] P83 R16 BP 121/75 SPO2 93%RA. DR. PALOMARES NOTIFIED, STATES HE WILL PLACE ORDERS NOW.
[2019-02-14 19:28] VITALS: BP 103/64
--- NOTE | 2019-02-14 19:47 | NUR ---
RESTING QUIET WITH EYES CLOSED. STATES PAIN WITH PALPATION RIGHT MID CHEST. NO DIAPHORIESIS, SHORTNESS OF BREATH NOTED. WILL CONTINUE TO MONITOR AND AWAIT LAB RESULTS.
[2019-02-14 20:01] LABS: BUN 26 mg/dl (7-24); CHLORIDE 106 mmol/L (98-107); CREATININE 1.27 mg/dL (0.70-1.30); POTASSIUM 4.7 mmol/L (3.5-5.1); SODIUM 138 mmol/L (136-145)
[2019-02-14 20:03] LABS: TROPONIN I < 0.015 ng/ml (<0.045)
[2019-02-14 20:26] VITALS: BP 106/67
--- NOTE | 2019-02-14 20:28 | NUR ---
DR SHEA NOTIFIED OF EKG RESULTS. SHE IS COMING TO SEE CLIENT. CLIENT REMAINS ASYMPTOMATIC
--- NOTE | 2019-02-14 20:37 | NUR ---
SVT NOTED ON BP MACHINE. ENCOURAGED CLIENT TO DEEP COUGH BUT NO CHANGE IN SVT NOTED. C/O PAIN WITH INSPIRATION RIGHT LUNG. LUNGS CLEAR BILATARY. CLIENT ORIENTED TO SELF ONLY WHICH IS BASELINE. STATES A LITTLE WORSE WITH PALPATION. SEE LAB RESULTS IN COMPUTER. MAG UP AT 2.7. TROPONIN NEGATIVE
[2019-02-14 20:53] VITALS: BP 103/65
--- NOTE | 2019-02-14 20:54 | NUR ---
NOTED DR SHEA THAT CLIENT REMAINS IN SVT AND HAVING CHEST PAIN. O2 2LNC APPLIED. BP 103/65 UNABLE TO GIVE NITRO TAB.
[2019-02-14 21:25] VITALS: BP 97/66
--- NOTE | 2019-02-14 22:32 | NUR ---
RUNNING NOTE OF EVENTS STARTING AT 1950PM CLIENT ALERT PER BASELINE. C/O CHEST PAIN WITH AND WITHOUT PALPATION. NO RELIEF WITH NITRO STAT GIVEN UNDER THE TONGUE. SEE VITALS FOR FULL INFORMATION EKG ARRIVED AND FOUND CLIENT TO BE IN SVT WITH QUESTIONABLE ST ELEVATION IN V2. DR SHEA CALLED AND NOTIFIED UNABLE TO GIVE ADDITIONAL NITROSTAT DUE TO HYPOTENSION. O2 2LNC APPLIED PER CHEST PAIN PROTOCOL. ATTEMPTED VAGUAL MANUVERS WITHOUT SUCCESS. CLIENT THEN C/O RIGHT LUNG PAIN IN COUGH. LUNGS CLEAR BILATERALLY WITH GOOD AIR FLOW. DR SHEA ARRIVED AND ORDERS RECIEVED. SHE CALLED [facility] BEFORE ORDERS TO TRANSFER TO ICCU RECIEVED. NOTIFIED FOUNDRY HAND ZOILA WAHL OF ORDER IV started right antecubital with #18 angiocath after 1 attempts. The IV site was prepped with Chloraprep. Heparin lock attached. Sterile dressing applied. Patient tolerated precedure well. Procedure performed according to [facility] policy & procedure. AND I BOTH SPOKE WITH LEXX MORIN AND GOT PERMISSION TO TEMPORARILY CHANGE DNRCC TO DNRCC A TO BE ABLE TO MONITOR. PERMISSION RECIEVED. NEW DNR PAPERS SIGNED. DISCHARGED AND TRANSFERED CLIENT VIA ANDREA CHAIR WITH O2 3LNC ON. CLIENT REMAINS ALERT, DENIES SOB, NO DIAPHORESIS. CLEMENTINA MARTINI SENIOR DATA QUALITY ANALYST NOTIFIED AND SHE ORDERED ALL PSYCHIATRIC MEDICATION HELD TILL SHE RE EVALUATES IN AM BUSHRA BOURGEOIS
--- NOTE | 2019-02-14 23:10 | NUR ---
NOTIFIED LESLEE WAHL THAT ALL PSYCH MEDS ON HOLD PER CLEMENTINA MARTINI NP. GETTING PAPERWORK COMPLETED TO SEND UP
[2019-02-14] MEDS ORDERED: PROTONIX40 MG PO (23:45)
[2019-02-14] MEDS ORDERED: LIPITOR10 MG PO (23:46)
[2019-02-14] MEDS ORDERED: DONEPEZIL HCL10 MG PO (23:46)
[2019-02-14] MEDS ORDERED: SERTRALINE HYD100 MG PO (23:46)
[2019-02-14] MEDS ORDERED: LOPRESSOR25 MG PO (23:47)
[2019-02-14] MEDS ORDERED: 24HR ALLERGY REL5 MG PO (23:47)
[2019-02-14] MEDS ORDERED: BRILINTA90 M1 PO (23:48)
[2019-02-14] MEDS ORDERED: LISINOPRIL5 MG PO (23:48)
[2019-02-14] MEDS ORDERED: DEPAKOTE125 MG PO (23:49)
[2019-02-14] MEDS ORDERED: IMDUR SA30 MG PO (23:49)
--- NOTE | 2019-02-15 07:25 | NUR ---
PHYSICAL THERAPY CO-SIGN I approve of the Physical Therapy notes written above. Shyanne Serna PT
--- NOTE | 2019-02-15 07:51 | NUR ---
OCCUPATIONAL THERAPY CO-SIGN I approve of the Occupational Therapy notes written above. MIKO JEAN OTR/Davion
== END 2019-02-14 19:35 | disposition short-term general hospital (02) | DRG 883 ==
LOC: 3N 10:09
PROVIDERS: Registered Nurse; Student in an Organized Health Care Education/Training Program; ADMIT Psychiatry & Neurology Psychiatry
DX: F63.81 Intermittent explosive disorder (principal); F23 Brief psychotic disorder; F02.81 Dementia in other diseases classified elsewhere, unspecified severity, with behavioral disturbance; G30.9 Alzheimer's disease, unspecified; I10 Essential (primary) hypertension; E78.5 Hyperlipidemia, unspecified; F32.9 Major depressive disorder, single episode, unspecified; I25.10 Atherosclerotic heart disease of native coronary artery without angina pectoris; F41.9 Anxiety disorder, unspecified; Z88.0 Allergy status to penicillin; Z88.4 Allergy status to anesthetic agent; Z79.899 Other long term (current) drug therapy; Z79.82 Long term (current) use of aspirin

== ENCOUNTER 2019-02-14 21:52 | Inpatient (IN) | payer OTHER ==
[~2019-02-14] VITALS: Ht 180.3 cm; Wt 82.6 kg
[2019-02-14 21:40] VITALS: BP 128/81
--- NOTE | 2019-02-14 21:45 | NUR ---
A 88 YEAR OLD MALE PATIENT, admitted to ICCU, under the services of REJI Keenan DO with a diagnosis of SVT . Chief complaint is INCREASED HEARTRATE, CHEST PAIN. Patient arrived via ANDREA-CHAIR from [facility]. Monitor applied. Initial assessment completed. Vital signs taken and recorded. See assessment for past medical history, medications and allergies. Patient and/or family oriented to unit. [facility]. Clothing/patient valuable form completed. LESLEE CHARLES
[~2019-02-14 21:52] MED LIST: ARICEPT10 M1 PO; ASPIRIN81 M1 PO; ATORVASTATIN CA10 M1 PO; BRILINTA90 M1 PO; DEPAKOTE SPRIN125 MG PO; IMDUR SA30 MG PO; LISINOPRIL5 MG PO; LOPRESSOR25 MG PO; LORADAMED10 MG PO; NAMENDA-5 PO; REMERON15 M2 PO; RISPERIDONE1 MG PO; VISTARIL50 MG PO
--- NOTE | 2019-02-14 22:05 | NUR ---
6MG OF ADENOSINE GIVEN AT THIS TIME PER DR VEGA. DR SHEA AND DR SHCROEDER AT BEDSIDE. CRASH CART AT BEDSIDE. ADENOSINE GIVEN, PATIENT WENT FROM 170'S TO ASYSTOLE AND THEN IMMEDIATELY BACK TO 160-170'S. DR SHEA ON PHONE WITH CARDIOLOGY
--- NOTE | 2019-02-14 23:11 | NUR ---
DR BETTS AWARE OF CARDIOLOGY CONSULT PER DR SHEA.
[2019-02-14] MEDS ORDERED: PROTONIX40 MG PO (23:45)
[2019-02-14] MEDS ORDERED: SERTRALINE HYD100 MG PO (23:46)
[2019-02-14] MEDS ORDERED: LIPITOR10 MG PO (23:46)
[2019-02-14] MEDS ORDERED: DONEPEZIL HCL10 MG PO (23:46)
[2019-02-14] MEDS ORDERED: LOPRESSOR25 MG PO (23:47)
[2019-02-14] MEDS ORDERED: 24HR ALLERGY REL5 MG PO (23:47)
[2019-02-14] MEDS ORDERED: LISINOPRIL5 MG PO (23:48)
[2019-02-14] MEDS ORDERED: BRILINTA90 M1 PO (23:48)
[2019-02-14] MEDS ORDERED: IMDUR SA30 MG PO (23:49)
[2019-02-14] MEDS ORDERED: DEPAKOTE125 MG PO (23:49)
--- NOTE | 2019-02-14 23:51 | NUR ---
MEDICATION RECONCILLIATION COMPLETED USING THE MEDICATION CLAIM HISTORY. PATIENT WAS TRANSFERRED FROM THE U AND THIS DEPARTMENT HAS YET TO RECIEVE DISCHARGE PAPERWORK FROM [facility] TO BE ABLE TO IDENTIFY THE PSYCH MEDICATIONS THAT THE PATIENT WAS PRESCRIBED WHILE IN THEIR CARE. WILL ATTEMPT TO OBTAIN PAPERWORK AGAIN
[2019-02-15] VITALS (10 sets, daily range): BP systolic 85–131; BP diastolic 40–82
--- NOTE | 2019-02-15 01:30 | NUR ---
UPON CHECKING ON PATIENT, IT IS SEEN THAT PATIENT HAS REMOVED IV TO THE LEFT THUMB ON HIS OWN. DRY STERILE DRESSING WAS APPLIED TO THE SITE AND PRESSURE WAS HELD TO ENSURE BLEEDING WAS CONTROLLED. PATIENT WAS CLEANED UP AND NEW GOWN WAS APPLIED. PATIENT BEGAN TO TALK IN NON-SENSICAL WAYS, AND BEING UNCOOPERATIVE WITH GOWN CHANGE. PATIENT BECOMING INCREASINGLY AGGRESSIVE AND RAISING VOICE. PATIENT ALSO SLAMMED FISTS ON SIDE RAILS OF BED. DR CALLED FOR PRN ORDER
--- NOTE | 2019-02-15 01:45 | NUR ---
PATIENT HAS BEEN REDIRECTED SINCE EARLIER OUTBURST AND HAS NOT BEEN MEDICATED WITH ATIVAN PER DRS ORDERS. WILL CONTINUE TO MONITOR. PATIENT RESTING QUIETLY AT THIS TIME
[2019-02-15 04:58] LABS: BASO % 0.2 % (0.0-1.0); EOS # 0.2 10*3/uL (0.0-0.4); EOS % 3.3 % (1.0-4.0); HEMATOCRIT 35.5 % (42.0-52.0); HEMOGLOBIN 11.1 g/dl (14.0-18.0); LYMPH # 0.9 10*3/uL (1.3-4.4); LYMPH % 19.7 % (27.0-41.0); MEAN CELL VOLUME 89.9 fl (80.0-94.0); MEAN CORPUSCULAR HGB 28.1 pg (27.0-31.0); MEAN CORPUSCULAR HGB CONC 31.3 g/dl (33.0-37.0); MONO # 0.5 10*3/uL (0.1-1.0); MONO % 11.1 % (3.0-9.0); NEUT # 3.1 10*3/uL (2.3-7.9); NEUT % 65.3 % (47.0-73.0); PLATELET COUNT AUTOMATED 101 10*3/uL (130-400); RED BLOOD COUNT 3.95 10*6/uL (4.50-5.90); RED CELL DISTRI WIDTH 15.5 % (0-14.5); WHITE BLOOD COUNT 4.8 10*3/uL (4.8-10.8)
[2019-02-15 05:17] LABS: ALBUMIN 2.7 gm/dl (3.1-4.5); ALKALINE PHOSPHATASE 89 U/L (45-117); BUN 28 mg/dl (7-24); CHLORIDE 109 mmol/L (98-107); CREATININE 1.11 mg/dL (0.70-1.30); PHOSPHOROUS 4.5 mg/dL (2.5-4.9); POTASSIUM 4.2 mmol/L (3.5-5.1); SGOT/AST 42 IU/L (3-35); SGPT/ALT 55 U/L (12-78); SODIUM 142 mmol/L (136-145); TOTAL PROTEIN 6.2 gm/dL (6.4-8.2)
--- NOTE | 2019-02-15 07:02 | NUR ---
TALKED TO DYLAN IN PHARMACY REGARDING ATIVAN. MADE AWARE THAT PATIENT HAS NOT HAD ANY ATIVAN PER THE 1 TIME ORDER AND VIAL IS STILL UNOPENED. NOTE PLACED WITH MEDICATION AND WILL BE SET OUT FOR PHARMACY TO SENIOR UI UX DESIGNER.
--- NOTE | 2019-02-15 07:30 | NUR ---
PHYSICAL THERAPY Screen received as well as PT eval will follow thank you Shyanne Serna PT
--- NOTE | 2019-02-15 07:50 | NUR ---
TELEMETRY MONITOR spoke with MARYURI Hirsch. TELEMETRY MONITOR explained that there is transportation set for 10:30a vegetable picker for patient to return to [facility]. Per Joycelyn, stated to hold off on the transport as the Cardio still needs to see the patient. TELEMETRY MONITOR spoke with Sylvia Peterson to hold off on the transport. TELEMETRY MONITOR reached out to [facility] Commercial Intern Gia to obtain [facility] contact information to provide an update. -ELVIN Swanson
--- NOTE | 2019-02-15 08:11 | NUR ---
BAKER HEAD spoke with Luna Hinojosa and left a message for Sandra explaining patients discharge is on hold at this time. -ELVIN Swanson
--- NOTE | 2019-02-15 12:43 | NUR ---
NOTIFIED OF BLOOD PRESSURE 85/45. NO NEW ORDERS RECEIVED.
--- NOTE | 2019-02-15 12:50 | NUR ---
Occupational Therapy evaluation completed in ICCU with full eval to follow. Recommend OT to focus on sit balance, ADLs, BUE strength and functional use, transfers and stand tolerance per POC and return to [facility] / SNF to enable max ability to function. Patient is high complexity level 28071. Thank you. Laura Squires OTr/l
--- NOTE | 2019-02-15 12:50 | NUR ---
Occupational Therapy evaluation completed in ICCU with full eval to follow. Precautions include fall risk,ICCU,dementia,+2 transfer assist, care w/ all ADLs, high complexity level 18574. Recommend return to prison w/ OT,PT to determine max ability to function. Recommend OT for sit balance, BUE functional use, feeding, grooming, bed mobility and stand tolerance. Thank you. MIKO JEAN OTR/L
--- NOTE | 2019-02-15 13:11 | NUR ---
PT IS FPC CARE AT [facility]. PT IS PLANNED TO RETURN ON DISCHARGE WHEN MEDICALLY STABLE.
--- NOTE | 2019-02-15 15:33 | NUR ---
PHYSICAL THERAPY Be completed moderate level of complexity [id number] recomend SNF or f/u therapy at facility. Full report to follow PT to work on transfers, amb, balance/safety, strengthening. Shyanne Serna PT
--- NOTE | 2019-02-15 16:15 | NUR ---
Nursing screen received and Occupational Therapy referral received. Thank you. Laura Squires OTR/l
[2019-02-16] VITALS: BP 100/40
--- NOTE | 2019-02-16 02:14 | NUR ---
DOCTOR MONSE TO FLOOR PATIENT HAD RIPPED OUT IV AND TAKEN OFF ALL OF HIS CLOTHES AND HEART MONITOR. I TRIED TO TELL THE PATIENT THAT HE WAS IN THE HOSPITAL BUT HE DISAGREED AND WAS BECOMING MORE AGGITATED. PRN ATIVAN GIVEN AT THIS TIME.
--- NOTE | 2019-02-16 03:53 | NUR ---
GEODON AND ATIVAN GIVEN TO PATIENT FOR AGITATION HAS NOT WORKED VERY WELL PATIENT YELLING AND CONTINUING TO PULL CLOATHES AND HEART MONITOR OFF. PATIENT STATES THAT THIS IS NOT A HOSPITAL AND EVERYTHING I SAY TO HIM ABOUT HOW HIS GOWN GOT OFF HE SAYS HE DID NOT DO IT.
[2019-02-16 04:00] VITALS: BP 118/50
[2019-02-16 04:48] LABS: BASO % 0.5 % (0.0-1.0); EOS # 0.2 10*3/uL (0.0-0.4); EOS % 5.7 % (1.0-4.0); HEMATOCRIT 35.5 % (42.0-52.0); HEMOGLOBIN 11.1 g/dl (14.0-18.0); LYMPH % 24.4 % (27.0-41.0); MEAN CELL VOLUME 89.6 fl (80.0-94.0); MEAN CORPUSCULAR HGB CONC 31.3 g/dl (33.0-37.0); MEAN PLATELET VOLUME 11.4 fl (9.6-12.3); MONO # 0.4 10*3/uL (0.1-1.0); MONO % 9.1 % (3.0-9.0); NEUT # 2.5 10*3/uL (2.3-7.9); NEUT % 59.8 % (47.0-73.0); PLATELET COUNT AUTOMATED 106 10*3/uL (130-400); RED BLOOD COUNT 3.96 10*6/uL (4.50-5.90); RED CELL DISTRI WIDTH 15.2 % (0-14.5); WHITE BLOOD COUNT 4.2 10*3/uL (4.8-10.8)
[2019-02-16 05:03] LABS: ALBUMIN 2.8 gm/dl (3.1-4.5); ALKALINE PHOSPHATASE 103 U/L (45-117); BUN 23 mg/dl (7-24); CHLORIDE 112 mmol/L (98-107); CREATININE 1.15 mg/dL (0.70-1.30); POTASSIUM 4.3 mmol/L (3.5-5.1); SGOT/AST 41 IU/L (3-35); SGPT/ALT 58 U/L (12-78); SODIUM 142 mmol/L (136-145); TOTAL PROTEIN 6.3 gm/dL (6.4-8.2)
[2019-02-16 07:36] VITALS: BP 106/52
--- NOTE | 2019-02-16 07:37 | NUR ---
24 HR chart check completed.
--- NOTE | 2019-02-16 08:00 | NUR ---
PT RESTING QUIETLY ON BED WITH EASY RESPIRATIONS. PT IS CONFUSED. RESPIRATIONS EASY AND NON LABORED. PT ASSISTED WITH BREAKFAST TRAY. ATE PARTIAL BREAKFAST TRAY. NO ABNORMAL BEHAVIORS AT THIS TIME.
--- NOTE | 2019-02-16 10:12 | NUR ---
PT RESTING ON CART. INCONTINENT OF URINE. UNABLE TO COLLECT URINE SAMPLE AT THIS TIME. MEDICATIONS GIVEN FROM PHARMACY.
[2019-02-16] MEDS ORDERED: LOPRESSOR25 MG PO (10:22)
[2019-02-16] MEDS ORDERED: MIRTAZAPINE45 MG PO (10:22)
[2019-02-16] MEDS ORDERED: VITAMIN D5000 UNI1 PO (10:22)
[2019-02-16] MEDS ORDERED: PALIPERIDONE ER3 MG PO (10:22)
[2019-02-16] MEDS ORDERED: ELIQUIS5 M1 PO (10:22)
[2019-02-16] MEDS ORDERED: EXELON13.3 MG/21 T (10:22)
[2019-02-16] MEDS ORDERED: MEMANTINE HCL10 MG PO (10:22)
--- NOTE | 2019-02-16 10:38 | NUR ---
I SPOKE WITH SHASHA AT [facility] ABOUT PT BEING DISCHARGED BACK TO THEIR FACILITY TODAY. SHE STATED SHE HAS TO SPEAK WITH THEIR ADMISSION NURSE ON THE DETAILS AND WILL CALL ME BACK.
--- NOTE | 2019-02-16 11:09 | NUR ---
MARK FROM [facility] RETURNED CALL AND STATED PT IS OK TO COME TO THEM TODAY TO ARRIVE AROUND 2PM. DISCHARGE SUMMARY FAXED TO THEM AT THEIR REQUEST.
[2019-02-16 12:00] VITALS: BP 101/48
--- NOTE | 2019-02-16 12:37 | NUR ---
PT RESTING ON CART AT THIS TIME. NO DISTRESS NOTED. AWAITING TRANSPORT BACK TO [facility].
--- NOTE | 2019-02-16 13:09 | NUR ---
[facility] HERE TO TRANSPORT PT TO [facility]. REPORT GIVEN TO MARK AT [phone].
--- NOTE | 2019-02-16 13:22 | NUR ---
I SPOKE WITH PT'S SON PATIENCE ON THE PHONE AND NOTIFIED HIM OF HIS FATHERS DISCHARGE BACK TO '[facility].
== END 2019-02-16 13:09 | DRG 308 ==
LOC: ICCU 21:52
PROVIDERS: Emergency Medicine; Student in an Organized Health Care Education/Training Program; ADMIT Internal Medicine
DX: I48.92 Unspecified atrial flutter (principal); E43 Unspecified severe protein-calorie malnutrition; F02.81 Dementia in other diseases classified elsewhere, unspecified severity, with behavioral disturbance; F33.9 Major depressive disorder, recurrent, unspecified; G30.9 Alzheimer's disease, unspecified; I48.0 Paroxysmal atrial fibrillation; Z66 Do not resuscitate; Z51.5 Encounter for palliative care; I47.1 Supraventricular tachycardia; F41.9 Anxiety disorder, unspecified; I10 Essential (primary) hypertension; I25.10 Atherosclerotic heart disease of native coronary artery without angina pectoris; E78.5 Hyperlipidemia, unspecified; Z88.0 Allergy status to penicillin; Z88.4 Allergy status to anesthetic agent; Z79.82 Long term (current) use of aspirin; Z79.899 Other long term (current) drug therapy